=== PATIENT | male | born 1980 | race Caucasian/White ===

== ENCOUNTER 2025-07-24 19:57 | Emergency (ER) | payer OTHER, SELFPAY ==
--- NOTE | ~2025-07-24 | XR_ITS ---
EXAMINATION: XR chest 1V portable 07/24/2025 20:16 INDICATION: Aspiration PROCEDURE: AP portable chest COMPARISON: No prior studies for comparison. FINDINGS: The lungs are clear. The cardiomediastinal silhouette is within normal limits. There are no pleural effusions. There is no pneumothorax suspected. IMPRESSION: 1: NO ACUTE CARDIOPULMONARY DISEASE. Reviewed, dictated and finalized at location O.
--- OUTSIDE RECORDS SUMMARY | 2025-07-24 20:00 | XMS_ITS | Clinical Summary ---
Author Organization 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 Name Role Phone Gallito Lynn MD Primary Care Provider Allergies No known active allergies Medications simvastatin (ZOCOR) 40 mg tablet Take 1 tablet (40 mg total) by mouth nightly Active omega-3 fatty acids-fish oil 300-1,000 mg capsule Take 2 capsules (2 g total) by mouth daily Active multivitamin tabletIndicatio ns:Vitamin Deficiency Prevention Take 1 tablet by mouth Active Active Problems No known active problems Surgical History Surgery Date Site/Laterality Comments KNEE SURGERY Right TOOTH EXTRACTION N/A 1 molar and 3 wisdom teeth removed COLONOSCOPY Medical History Medical History Date Comments Hyperlipidemia Family History Medical History Relation Name Comments Colon cancer Maternal Grandmother Colon cancer Mother Relation Name Status Comments Maternal Grandmother Mother Social History Tobacco Use Types Packs/Day Years Used Date Smoking Tobacco: Never Smokeless Tobacco: Never Tobacco Cessation:Counseling Given: Not Answered AUDIT-C Answer Date Recorded Q1: How often do you have a drink containing alc ohol? Monthly or less 12/14/2024 Q2: How many drinks containi ng alcohol do you have on a typical day when you are drinking? 1 or 2 12/14/2024 Q3: How often do you have si x or more drinks on one occasion? Never 12/14/2024 Personal Safety Answer Date Recorded Have you ever been in or are you currently in a harmful physical or emotional relationship or is someone making you feel afraid or unsafe? Denies 12/22/2024 Sex and Gender Information Value Date Recorded Sex Assigned at Not on file Legal Sex Male 11:56 AM [employer]M [employer] [address] [employer] Gender Identity Not on file Sexual Orientation Not on file Obstetrics History Last Filed Vital Signs Vital Sign Reading Time Taken Comments Blood Pressure 114/67 12/22/2024 9:20 AM [address] [employer] [address] [employer] Pulse 56 12/22/2024 9:20 AM [address] [address] [employer] Temperature 36.2 C (97.1 F) 12/22/2024 9:00 AM [address]M [address] [address] [employer] Respiratory Rate 22 12/22/2024 9:20 AM [address]M [address] [address] [employer] Oxygen Saturation 98% 12/22/2024 9:20 AM [address]M [address] [address] [employer] Inhaled Oxygen Concentration - - Weight 106.6 kg (235 lb) 12/22/2024 8:10 AM [employer]M [employer] [address] [employer] Height 180.3 cm (5' 11) 12/09/2019 11:16 AM [employer]M [address] [address] [employer] Body Mass Index 32.78 12/09/2019 11:16 AM FORM [employer] [address] [employer] Plan of Treatment Health Maintenance Due Date Last Done Comments Depression Screening 1981 Hepatitis C Screening 1981 Varicella Vaccines (1 of 2 - 13+ 2-dose series) 1994 Hepatitis B Screening 1999 Regular Well Visit/Exam 18-64 1999 HPV Vaccines (1 - 3-dose SCDM series) 2008 Influenza Vaccine (#1) 2025 , 08/23/2023, 08/22/2022, Additional history exists DTaP/Tdap/Td Vaccine (2 - Td or Tdap) 08/23/2033 08/23/2023 Covid-19 Vaccine Completed 09/06/2024, , 08/22/2022, Additional history exists Pneumococcal vaccine <65 Aged Out No longer eligible based on patient's age to complete this topic Insurance [facility] Care Teams Plastic Sheets Supervisor Relationship Specialty Start Date End Date Gallito Lynn MD [address] [place] [address] PCP - General Family Medicine 12/15/24
--- OUTSIDE RECORDS SUMMARY | 2025-07-24 20:00 | XMS_ITS | Clinical Summary ---
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 Name Role Phone Unavailable Primary Care Provider Unavailabl e Social History Tobacco Use Types Packs/Day Years Used Date Smoking Tobacco: Never Assessed Sex and Gender Information Value Date Recorded Sex Assigned at Not on file Legal Sex Male 2:28 PM TR[employer] Gender Identity Not on file Sexual Orientation Not on file Plan of Treatment Health Maintenance Due Date Last Done Comments Hepatitis C Virus (HCV) Screening 1981 TdaP Immunization 1981 Hepatitis B Immunization (1 of 3 - 19+ 3-dose series) 2000 Human Papillomavirus (HPV) Immunization (1 - 3-dose SCDM series) 2008 SARS-COV-2 Immunization ( - 2023- season) 2024 Influenza Immunization (#1) 2025 Respiratory Syncytial Virus (RSV) Immunization (Adult) (1 - 1-dose 75+ series) 2056 Meningococcal Immunization (ACWY) Aged Out No longer eligible based on patient's age to complete this topic Pneumococcal Immunization Combined Aged Out No longer eligible based on patient's age to complete this topic Rotavirus Immunization Aged Out No lo nger eligible based on patient's age to complete this topic
[2025-07-24 20:02] VITALS: BP 145/84; PULSE 72; RESP 18; TEMP 36.7; O2SAT 98
[2025-07-24 20:15] VITALS: RESP 15
[2025-07-24 20:22] VITALS: BP 132/74; PULSE 49; RESP 18; O2SAT 99
--- NOTE | 2025-07-24 20:27 | ED.GENADULT ---
HPI - General Adult General Chief complaint: Allergic Reaction Stated complaint: aspirated ham? Time Seen by Provider: 07/24/25 20:08 History of Present Illness HPI narrative: Patient is a 44-year-old male who presents to the emergency department this evening due to concern for aspiration. Patient states that he sneezed with a mouth full of food and feels as though he aspirated some of it. He is currently denying any chest pain, states that he does feel some irritation to his lungs when he takes a deep breath otherwise denies any additional symptoms or concerns. Managing secretions. Denies any shortness of breath. Related Data Allergies Allergy/AdvReac Type Severity Reaction Status Date / Time No Known Allergies Allergy Verified 07/24/25 20:02 Review of Systems Review of Systems: All systems are reviewed and are negative unless stated otherwise in the HPI. [facility] Past Medical History Medical History Family history of colon cancer HLD (hyperlipidemia) Surgical History Surgical History History of knee surgery R knee, arthroscopy Family History Family History Father Heart disease Mother Carcinoma of colon Social History Social History Smoking status: Never smoker Alcohol intake: current Substance use: never Living arrangements: with family Occupation/Education: occupation Gender identity (if verbalized by the patient): Male Sexual Orientation (if Verbalized by the Patient): Straight or Heterosexual Spiritual care concerns: No Exam Narrative: General: Alert, awake, afebrile, in no acute distress. HEENT: PERRL, no rhinorrhea, no post nasal drip, oropharynx clear. Neck: Trachea midline, no JVD, no lymphadenopathy. Cardiovascular: Regular rate and rhythm, no murmurs, rubs or gallops, no peripheral edema. Respiratory: Clear to auscultation bilaterally, no tachypnea, no wheezing, no rhonchi, no rubs, no respiratory distress. Abdomen: Soft, nontender, nondistended, no rebound, no guarding, no peritoneal signs. Musculoskeletal: No joint swelling or deformity, normal muscle tone. Skin: No rashes or petechia, no signs of infection. Psychiatric: Alert and oriented, normal behavior and judgment for situation. Neurological: Alert and oriented to person, place, and time. Follows all commands. No focal deficits, speech is clear and fluent. Course Vital Signs Vital signs: Vital Signs Temperature 98.1 F 07/24/25 20:02 Pulse Rate 72 07/24/25 20:02 Respiratory Rate 18 07/24/25 20:02 Blood Pressure 145/84 H 07/24/25 20:02 Pulse Oximetry 98 07/24/25 20:02 Oxygen Delivery Room Air 07/24/25 20:02 Temperature 98.1 F 07/24/25 20:02 Pulse Rate 49 L 07/24/25 20:55 Respiratory Rate 18 07/24/25 20:55 Blood Pressure 132/74 07/24/25 20:55 Pulse Oximetry 99 07/24/25 20:55 Oxygen Delivery Room Air 07/24/25 20:02 Medical Decision Making MDM Narrative Medical decision making narrative: The patient was evaluated by myself in the emergency department. History is obtained from patient who is an independent historian and physical exam was performed. External medical records were reviewed at this time. Imaging studies obtained included CXR which was independently interpreted by me revealing no acute process, which is pending final radiology interpretation. Patient was administered disorders oral antibiotic with p.o. doxycycline in the emergency department and patient was able to keep it down without any difficulty. Differential diagnosis considerations include aspiration pneumonitis, pneumonia. Comorbidities impacting this visit include none. I have evaluated and discussed social determinants of health with the patient that could potentially impact subsequent diagnosis and treatment plans. On repeat assessment of the patient, reevaluation revealed that the patient is doing well and is in no acute distress. Patient symptoms have improved since he arrived to our emergency department. Repeat vital signs were all reviewed and noted to be stable. Differential diagnosis and treatment plan were discussed with the patient at bedside. Patient agrees with discussion and after shared medical decision making agrees with discharge. All questions were answered to the patient's satisfaction. Patient will follow up with his PCP in 3-5 days. A script for doxycycline attenuation pharmacy to take as prescribed for his aspiration pneumonitis, was administered first dose in the emergency department. Patient was provided with strict return precautions and instructed to return to the emergency department if any new or worsening symptoms develop. The patient was discharged in stable condition. Vital Signs Vital Signs: Vital Signs Temperature 98.1 F 07/24/25 20:02 Pulse Rate 72 07/24/25 20:02 Respiratory Rate 18 07/24/25 20:02 Blood Pressure 145/84 H 07/24/25 20:02 Pulse Oximetry 98 07/24/25 20:02 Oxygen Delivery Room Air 07/24/25 20:02 Temperature 98.1 F 07/24/25 20:02 Pulse Rate 49 L 07/24/25 20:55 Respiratory Rate 18 07/24/25 20:55 Blood Pressure 132/74 07/24/25 20:55 Pulse Oximetry 99 07/24/25 20:55 Oxygen Delivery Room Air 07/24/25 20:02 Discharge Plan Discharge Clinical Impression: Aspiration into airway, Pneumonitis Patient Disposition: Home Condition: Improved Instructions: Antibiotic Form, Pneumonitis (ED) Additional Instructions: Please follow-up with your family doctor within the next 3-5 days. Return to emergency department for any new or worsening symptoms develop. Take the prescribed antibiotic as instructed. Patient Language: Welsh Prescriptions: New doxycycline hyclate 100 mg capsule 100 mg PO BID 5 Days Qty: 10 0RF No Action simvastatin 40 mg tablet 40 mg PO DAILY Qty: 90 2RF Follow-up/Referrals: Gallito Lynn MD [Primary Care Provider, Family Practice] - 3 Days Time of Disposition: 20:28
[2025-07-24] MEDS: DOXYCYCLINE HYCLATE 100 MG TABLET PO (20:37)
[2025-07-24 20:55] VITALS: BP 132/74; PULSE 49; RESP 18; O2SAT 99
== END 2025-07-24 20:57 | disposition home or self-care (01) ==
PROVIDERS: Emergency Provider Emergency Medicine; PCP Family Medicine
DX: J69.0 Pneumonitis due to inhalation of food and vomit (principal); E78.5 Hyperlipidemia, unspecified
CPT/HCPCS: 71045; 99283; A9270